=== PATIENT | female | born 1995 | race Caucasian/White ===

== ENCOUNTER 2017-03-15 17:24 | Emergency (ER) | payer MEDICAID ==
[~2017-03-15 17:24] MED LIST: AMOXICILLIN 50500 MG PO; NORCO 325 MG-51 TAB PO; PRENATABS FA1 TAB PO
[2017-03-15 18:59] VITALS: BP 150/87
== END 2017-03-15 18:59 | disposition home or self-care (01) ==
LOC: ED 17:24
DX: N93.8 Other specified abnormal uterine and vaginal bleeding (principal)

== ENCOUNTER 2017-08-24 09:51 | Emergency (ER) | payer OTHER, MEDICAID ==
[~2017-08-24] VITALS: Ht 157.5 cm; Wt 87.3 kg
[2017-08-24 10:49] VITALS: BP 124/83
== END 2017-08-24 10:46 | disposition home or self-care (01) ==
LOC: ED 09:51
DX: S67.190A Crushing injury of right index finger, initial encounter (principal); S61.210A Laceration without foreign body of right index finger without damage to nail, initial encounter; S60.021A Contusion of right index finger without damage to nail, initial encounter; W31.89XA Contact with other specified machinery, initial encounter; Y92.008 Other place in unspecified non-institutional (private) residence as the place of occurrence of the external cause; Z23 Encounter for immunization
CPT/HCPCS: 90715; A4649

== ENCOUNTER 2018-04-04 00:47 | Emergency (ER) | payer MEDICAID ==
[~2018-04-04] VITALS: Ht 162.6 cm; Wt 87.3 kg
[2018-04-04 02:25] LABS: URINE APPEARANCE HAZY; URINE BILIRUBIN NEGATIVE (NEGATIVE); URINE BLOOD NEGATIVE (NEGATIVE); URINE COLOR YELLOW; URINE GLUCOSE NEGATIVE (NEGATIVE); URINE KETONE NEGATIVE (NEGATIVE); URINE LEUKOCYTE ESTERASE NEGATIVE (NEGATIVE); URINE NITRATE NEGATIVE (NEGATIVE); URINE PROTEIN(semi-quant) NEGATIVE (NEGATIVE); URINE UROBILINOGEN NORMAL (NORMAL); URINE WBC 0-1 /hpf (0-3)
[2018-04-04 03:14] VITALS: BP 110/80
== END 2018-04-04 03:14 | disposition home or self-care (01) ==
LOC: ED 00:47
PROVIDERS: Family Medicine
DX: M54.5 Low back pain (principal); M62.830 Muscle spasm of back
CPT/HCPCS: J1885

== ENCOUNTER 2019-09-26 23:02 | Emergency (ER) | payer MEDICAID ==
[~2019-09-26] VITALS: Ht 162.6 cm; Wt 78.6 kg
[2019-09-26 23:09] VITALS: BP 129/94
== END 2019-09-27 00:40 | disposition home or self-care (01) ==
LOC: ED 23:02
DX: S93.601A Unspecified sprain of right foot, initial encounter (principal); W10.9XXA Fall (on) (from) unspecified stairs and steps, initial encounter; Y92.009 Unspecified place in unspecified non-institutional (private) residence as the place of occurrence of the external cause
CPT/HCPCS: J1885; L4386

== ENCOUNTER → 2020-06-29 | Outpatient (CLI) | payer MEDICAID | LOC: RAD 16:52 | DX: S62.637A Displaced fracture of distal phalanx of left little finger, initial encounter for closed fracture (principal) ==

== ENCOUNTER 2024-01-16 21:20 | Emergency (ER) | payer MEDICAID ==
[2024-01-16 21:57] VITALS: BP 122/71
== END 2024-01-16 21:59 | disposition home or self-care (01) ==
LOC: ED 21:20
DX: O99.613 Diseases of the digestive system complicating pregnancy, third trimester (principal); K64.5 Perianal venous thrombosis; Z3A.29 29 weeks gestation of pregnancy

== ENCOUNTER 2024-01-18 07:51 | Emergency (ER) | payer MEDICAID ==
[~2024-01-18] VITALS: Ht 160 cm; Wt 90.9 kg
[2024-01-18 08:27] VITALS: BP 138/86
== END 2024-01-18 08:40 | disposition home or self-care (01) ==
LOC: ED 07:51
DX: O22.42 Hemorrhoids in pregnancy, second trimester (principal); Z3A.00 Weeks of gestation of pregnancy not specified

== ENCOUNTER 2024-02-10 14:03 | Emergency (ER) | payer MEDICAID ==
[~2024-02-10] VITALS: Ht 160 cm; Wt 101.4 kg
[2024-02-10] MEDS ORDERED: NS 1,000 ML IV SCH ×2 (15:00→17:00)
[2024-02-10] MEDS ORDERED: Ondansetron 4 MG/2 ML VIAL IV ONE (15:00)
[2024-02-10 15:05] LABS: BASO # 0.01 K/mm3 (0.02-0.10); EOS # 0.01 K/mm3 (0.04-0.40); EOS % 0.1 % (1.0-5.0); HEMATOCRIT 39.5 % (37.0-47.0); HEMOGLOBIN 13.3 g/dL (12.5-16.0); LYMPH# 0.92 K/mm3 (1.50-4.00); MEAN CELL VOLUME 90 fl (78-100); MEAN CORPUSCULAR HEMOGLOBIN 30 pg (27-31); MEAN CORPUSCULAR HGB CONC 34 g/dL (33-37); MEAN PLATELET VOLUME 11.8 fl (7.4-10.4); MONO # 0.21 K/mm3 (0.20-0.80); NEU # 7.37 K/mm3 (1.40-6.50); PLATELET COUNT 182 K/mm3 (130-400); RED CELL DISTRIBUTION WIDTH 13.1 % (11.5-14.5); WHITE BLOOD COUNT 8.6 K/mm3 (4.8-10.8)
[2024-02-10 15:09] LABS: ALBUMIN 3.3 g/dL (3.5-5.0)
[2024-02-10 15:10] LABS: CALCIUM 8.8 mg/dL (8.3-10.5)
[2024-02-10 15:13] LABS: TOTAL BILIRUBIN 0.4 mg/dL (0.2-1.2)
[2024-02-10 15:19] LABS: TOTAL PROTEIN 6.4 g/dL (6.4-8.3)
[2024-02-10 16:34] LABS: PH-URINE 6.5 (5.0 - 8.0); URINE APPEARANCE CLOUDY (CLEAR); URINE BILIRUBIN 1+ (NEGATIVE); URINE COLOR YELLOW (YELLOW); URINE GLUCOSE NEGATIVE (NEGATIVE); URINE KETONE 4+ (NEGATIVE); URINE NITRATE NEGATIVE (NEGATIVE); URINE PROTEIN(semi-quant) TRACE (NEGATIVE)
[2024-02-10 16:35] LABS: URINE BLOOD NEGATIVE (NEGATIVE); URINE LEUKOCYTE ESTERASE NEGATIVE (NEGATIVE)
[2024-02-10 16:36] LABS: URINE MUCUS PRESENT (NOT PRESENT)
[2024-02-10] MEDS ORDERED: cefTRIAXone 1 G in Water For Injection,Sterile 10 ML IV ONE (17:15)
[2024-02-10] MEDS ORDERED: REGLAN10 M2 PO (18:33)
[2024-02-10] MEDS ORDERED: CEPHALEXIN500 M1 PO (18:48)
[2024-02-10 18:49] VITALS: BP 100/58
== END 2024-02-10 18:47 | disposition home or self-care (01) ==
LOC: ED 14:03
PROVIDERS: Physician Assistant
DX: O99.613 Diseases of the digestive system complicating pregnancy, third trimester (principal); K52.9 Noninfective gastroenteritis and colitis, unspecified; O26.893 Other specified pregnancy related conditions, third trimester; R82.71 Bacteriuria; Z3A.31 31 weeks gestation of pregnancy
CPT/HCPCS: J0696; J2405; J2765; J7030

== ENCOUNTER → 2024-08-13 | Outpatient (CLI) | payer MEDICAID ==
[~2024-08-13] MED LIST changes: +CEPHALEXIN500 M1 PO; +REGLAN10 M2 PO
== END ==
LOC: RAD 09:30
DX: M79.645 Pain in left finger(s) (principal)